=== PATIENT | female | born 1955 | race Caucasian/White ===

== ENCOUNTER 2017-06-22 10:59 | Outpatient (RCR) | payer MEDICARE, MEDICAID ==
[~2017-06-22 10:59] MED LIST: ALLERGY RELIEF PO; AMLO2.5T PO; ASPI-892 PO; CALC-196; CALC-760 PO; CHOL200014 PO; CLOP75TA PO; CLPD75T PO; CYAN100015 SL; CYAN100081 SL; CYCL10TA9 PO; CYCL5TAB11 PO; DIVA250T4 PO; EPIN0.3P2 IM; EPIN0.3P2 SC; EST45C; EZET10TA5 PO; FERR325C PO; FEXO180T PO; FISH OIL; FLUT16SP22 NS; HYDR-700; HYDR25CA3 PO; LORA-794 PO; LORA10TA2 PO; LORA1TAB PO; LRT10T PO; METF-478 PO; METO25TA2 PO; MULT-608; MULT1CAP27 PO; NF-ESOM40C PO; NF-XOP-HFA IH; NIAC125C3 PO; NIAC1CAP PO; NTR.4SL SL; OMEG-12 PO; OMEP-10 PO; OMEP20TA2 PO; OMG1KC PO; PARO20TA4 PO; PNT40TEC PO; RANI150T11 PO; RNT150T PO; SCR1T1 PO; SUCR1ORA PO; TRAM50TA2; TRAM50TA2 PO; VITA100T6 PO; VITA1CAP59; VITAMIN B 12; VITAMIN D; ZLP5T
== END 2017-07-20 13:10 | disposition home or self-care (01) ==
PROVIDERS: ATTEND Nurse Practitioner Family
DX: M54.42 Lumbago with sciatica, left side (principal); M54.41 Lumbago with sciatica, right side; M50.30 Other cervical disc degeneration, unspecified cervical region; G89.4 Chronic pain syndrome

== ENCOUNTER → 2017-11-08 | Outpatient (CLI) | payer MEDICARE, MEDICAID ==
[~2017-11-08] MED LIST changes: -CHOL200014 PO; +CHOL200085 PO; +REGADENOSON 0.4 MG/5 ML SYR (LEXISCAN) IV ONE
[2017-11-08] MEDS: CATHETER FLUSH 10 ML SYR IV PRN ×2 (11:47→13:02)
[2017-11-08 13:00] VITALS: BP 122/66
--- NOTE | 2017-11-10 10:34 | STRESS TEST ---
DATE OF SERVICE: 11/08/2017 RESTING AND POST REGADENOSON TECHNETIUM-99M TETROFOSMIN SPECT CT IMAGING ORDERING PHYSICIAN: Dr. Cabezas. PRIMARY PHYSICIAN: [facility]. CLINICAL DIAGNOSES: Coronary artery disease, hyperlipidemia, hypertension and shortness of breath. Baseline images were carried out after injection of 10.26 mCi of technetium-99M Tetrofosmin. This was followed by 0.4 mg Regadenoson and 31.5 mCi of technetium-99m Tetrofosmin for stress imaging. The electrocardiogram showed sinus rhythm with nonspecific ST abnormality in the inferolateral leads. This did not change significantly with the Regadenoson infusion. The patient tolerated the procedure well. Review of images at rest and following stress indicates a minimal transient perfusion defect in the lateral wall. Gated images show normal global left ventricular systolic function and normal regional wall motion. Left ventricular ejection fraction is calculated to be 73%. Left ventricular end diastolic volume is 48 mL. TID is absent (1.08). CONCLUSIONS: 1. This study is indicative of a minimal amount of the lateral ischemia. 2. Normal regional wall motion. 3. Normal global left ventricular systolic function with a calculated ejection fraction of 73%. 4. Normal left ventricular cavity size. Job ID: [id number] DocumentID: [id number] Dictated Date: 11/10/2017 10:06:29 Deflash And Wash Operator Date: 11/10/2017 10:34:00 Dictated By: BRIAN CABEZAS MD, MA, FACP, FACC,
== END ==
LOC: CARD 11:12
PROVIDERS: ATTEND Internal Medicine Cardiovascular Disease
DX: I77.89 Other specified disorders of arteries and arterioles (principal); I25.10 Atherosclerotic heart disease of native coronary artery without angina pectoris; N18.3 Chronic kidney disease, stage 3 (moderate); E78.5 Hyperlipidemia, unspecified; I12.9 Hypertensive chronic kidney disease with stage 1 through stage 4 chronic kidney disease, or unspecified chronic kidney disease; R06.02 Shortness of breath; Z95.1 Presence of aortocoronary bypass graft
CPT/HCPCS: 78452; 93017

== ENCOUNTER → 2017-11-28 | Outpatient (CLI) | payer MEDICARE, MEDICAID ==
[~2017-11-28] MED LIST changes: -REGADENOSON 0.4 MG/5 ML SYR (LEXISCAN) IV ONE
== END ==
LOC: CARD 11:59
PROVIDERS: ATTEND Internal Medicine Cardiovascular Disease
DX: I25.10 Atherosclerotic heart disease of native coronary artery without angina pectoris (principal); I12.9 Hypertensive chronic kidney disease with stage 1 through stage 4 chronic kidney disease, or unspecified chronic kidney disease; N18.3 Chronic kidney disease, stage 3 (moderate); E78.5 Hyperlipidemia, unspecified; R06.02 Shortness of breath; I08.3 Combined rheumatic disorders of mitral, aortic and tricuspid valves; Z95.1 Presence of aortocoronary bypass graft
CPT/HCPCS: 93306

== ENCOUNTER → 2018-02-03 | Outpatient (CLI) | payer MEDICARE, MEDICAID ==
--- NOTE | 2018-02-03 12:19 | Diagnostic Imaging Report ---
Indication: Screening. The current study was also evaluated with a Computer Aided Detection (CAD) system.\ Comparison made with prior examination of 01/04/2013 and 08/03/2011. 3D tomosynthesis was performed and reviewed. Findings: There are scattered fibroglandular densities bilaterally. There is no dominant mass, spiculated lesion or suspicious calcification identified. There are a few benign type calcifications. Impression: Category 2 benign ACR BI-RADS Category 2: Benign findings. Result letter will be mailed to the patient. Note: At least 10% of breast cancer is not imaged by mammography. Dictated by: Dictated on workstation # [id number]
== END ==
LOC: RAD 09:16
PROVIDERS: ATTEND Family Medicine
DX: Z12.31 Encounter for screening mammogram for malignant neoplasm of breast (principal)
CPT/HCPCS: 77067

== ENCOUNTER → 2018-10-30 | Outpatient (CLI) | payer MEDICARE, MEDICAID ==
[~2018-10-30] MED LIST changes: +CHOL200014 PO; -CHOL200085 PO
--- NOTE | 2018-10-30 16:44 | Diagnostic Imaging Report ---
CLINICAL INDICATION: Patient slipped and fell out of her chair twice in two weeks and has severe low back pain radiating to left hip. EXAM: CT scan of the lumbar spine performed without IV contrast with sagittal and coronal reformatted images. COMPARISON: None. FINDINGS: There is no acute lumbar spine fracture or dislocation. There are minimal spurs involving the lumbar spine. There is no significant paraspinal soft tissue abnormality. There is atelectasis or scarring in both lung bases. Calcified granulomas in both lung bases are seen. L1-L2: There is no significant central spinal canal or neural foramen narrowing. L2-L3: There is mild diffuse disc bulge. There is tsps-ux-ncdfkenm bilateral neural foramen narrowing. There is no significant central canal narrowing. L3-L4: There is a mild diffuse disc bulge which contributes to ohfj-tr-tjupbqjw bilateral neural foramen narrowing. There is no significant central canal narrowing. L4-L5: There is mild diffuse disc bulge and mild bilateral facet arthropathy. There is qugk-bj-ycpxxzsq bilateral neural foramen narrowing. There is no significant central canal narrowing. L5-S1: There is appearance of a small central posterior disc protrusion/herniation with mild central canal narrowing with mild left neural foramen narrowing and no significant right neural foramen narrowing. IMPRESSION: 1: There is no acute fracture or dislocation. 2: There is ewjc-rx-fbfxupzy lumbar spine degenerative disease, as described above. Dictated by: Dictated on workstation # [id number]
--- NOTE | 2018-10-30 16:48 | Diagnostic Imaging Report ---
PROCEDURE: CT left lower extremity without contrast. TECHNIQUE: Multiple contiguous axial images were obtained through the left lower extremity without the use of intravenous contrast. Sagittal and coronal reformations were then performed. Auto Exposure Controls were utilized during the CT exam to meet ALARA standards for radiation dose reduction. INDICATION: Fall with left hip pain. FINDINGS: CT imaging of the left hip is performed with sagittal and coronal reformatted images produced. There is no evidence of acute fracture. There is no significant hip joint fluid. No definite juxta-articular hemorrhage is identified. There is no evidence of free fluid seen within the visualized portions of the pelvis. There is herniation of fat through the left inguinal canal. IMPRESSION: 1. No evidence of acute left hip abnormality. In particular, there is no evidence of fracture or dislocation. 2. There is herniation of fat through the left inguinal canal without bowel hernia appreciated. Dictated by: Dictated on workstation # [id number]
== END ==
LOC: RAD 15:58
PROVIDERS: ATTEND Nurse Practitioner Family
DX: M48.07 Spinal stenosis, lumbosacral region (principal); J84.10 Pulmonary fibrosis, unspecified; M47.816 Spondylosis without myelopathy or radiculopathy, lumbar region; M51.16 Intervertebral disc disorders with radiculopathy, lumbar region; K40.90 Unilateral inguinal hernia, without obstruction or gangrene, not specified as recurrent
CPT/HCPCS: 72131; 73700

== ENCOUNTER 2018-11-09 12:49 | Emergency (ER) | payer MEDICARE, MEDICAID ==
[~2018-11-09] VITALS: Ht 152.4 cm; Wt 90.0 kg
[2018-11-09] MEDS ORDERED: KETOROLAC 30 MG/ML VIAL IVP ONE (14:00)
[2018-11-09] MEDS ORDERED: fentaNYL INJECTION 100 MCG/2 ML AMP ONE (14:06)
[2018-11-09] MEDS ORDERED: fentaNYL INJECTION 100 MCG/2 ML AMP IVP PRN (14:15)
[2018-11-09 14:18] LABS: BASOPHILS % (AUTO) 1 % (0-10); EOSINOPHILS # (AUTO) 0.2 10^3/uL (0.0-0.3); EOSINOPHILS % (AUTO) 4 % (0-10); HEMATOCRIT 39 % (35-52); HEMOGLOBIN 13.2 G/DL (11.5-16.0); LYMPHOCYTES # (AUTO) 2.3 X 10^3 (1.0-4.0); LYMPHOCYTES % (AUTO) 37 % (12-44); MEAN CORPUSCULAR HEMOGLOBIN 32 PG (25-34); MEAN CORPUSCULAR HGB CONC 34 G/DL (32-36); MEAN CORPUSCULAR VOLUME 94 FL (80-99); MEAN PLATELET VOLUME 9.2 FL (7.4-10.4); MONOCYTES # (AUTO) 0.8 X 10^3 (0.0-1.0); MONOCYTES % (AUTO) 13 % (0-12); NEUTROPHILS # (AUTO) 2.8 X 10^3 (1.8-7.8); NEUTROPHILS % (AUTO) 46 % (42-75); PLATELET COUNT 399 10^3/uL (130-400); RED CELL DISTRIBUTION WIDTH 13.4 % (10.0-14.5); WHITE BLOOD COUNT 6.1 10^3/uL (4.3-11.0)
--- NOTE | 2018-11-09 14:18 | ED Back Pain ---
General Chief Complaint: Back Problems Stated Complaint: BACK INJ Nursing Triage Note: Brought to triage by Wheelchair. Stayes that she was sent over from [facility] for further evaluation of back pain. States that she feel out of her rocking chair while trying to stand on 10/23 and hit her back on ottoman. States going to [facility] on 10/[address] To [facility] today for no improvement of pain and duskiness to toe nail beds. States that she is numb and tingling from waist down. Is able to control bladder and bowel but does leak urine if bladder is full but that is not new. Able to ambulate at home with use of railings for support but states she stays flat most of the time Nursing Sepsis Screen: No Definite Risk Source of Information: Patient Exam Limitations: No Limitations History of Present Illness Date Seen by Provider: Nov 09, 2018 Time Seen by Provider: 14:17 Initial Comments To ER with reports of midline low back pain. She fell on 10/23/18. She had lumbar spine CT done and right hip CT done at that time which failed to reveal fracture or dislocation. She comes in today with progressive pain, questionable discoloration of her toes. She reports some numbness from the waist down, she does report urinary incontinence which is unusual for her. Location: Lumbar Spine Timing/Duration: Other (2 weeks getting worse) Severity: Moderate Method of Injury: Unknown Associated Symptoms: No fever; lower back pain, loss of bladder control Allergies and Home Medications Allergies Coded Allergies: cinnamon (Unverified Allergy, Intermediate, HIVES, 05/04/12) mirtazapine (Verified Allergy, Intermediate, RASH, 08/14/15) Milk Containing Products (Unverified Allergy, Mild, NAUSEA, 05/04/12) amitriptyline (Unverified Allergy, Mild, HIVES, 05/04/12) doxycycline (Verified Allergy, Mild, RASH, 08/09/12) Beef Containing Products (Unverified Allergy, Unknown, hives, 08/29/09) Pork/Porcine Containing Products (Unverified Allergy, Unknown, hives, 08/29/09) albuterol (Verified Allergy, Unknown, 01/03/09) aspirin (Verified Allergy, Unknown, 08/14/15) codeine (Verified Allergy, Unknown, 01/03/09) cyclobenzaprine HCl (Verified Allergy, Unknown, 08/14/15) lisinopril (Verified Allergy, Unknown, 01/03/09) milk (Unverified Allergy, Unknown, hives, 08/29/09) penicillin G (Verified Allergy, Unknown, 01/03/09) pravastatin sodium (Verified Allergy, Unknown, 08/14/15) rabeprazole sodium (Verified Allergy, Unknown, 08/14/15) rofecoxib (Verified Allergy, Unknown, 01/03/09) venlafaxine (Verified Allergy, Unknown, 01/03/09) wheat (Unverified Adverse Reaction, Mild, 05/04/12) CONGESTION Uncoded Allergies: BARLEY (Allergy, Mild, HIVES, 05/04/12) Home Medications Calcium Carb/Vit D3/Minerals 1 Each Tablet, 1 TAB PO DAILY, (Reported) Cholecalciferol (Vitamin D3) 2,000 Unit Tablet, 2,000 UNIT PO DAILY, (Reported) Clopidogrel 75 Mg Tablet, 75 MG PO HS, (Reported) Cyanocobalamin (Vitamin B-12) 1,000 Mcg/1 Ml Drops, 1,000 MCG SL DAILY, (Reported) Cyclobenzaprine Hcl 10 Mg Tablet, 10 MG PO TID PRN for MUSCLE SPASMS, (Reported) Divalproex Sodium 250 Mg Tablet.dr, 250 MG PO UD PRN for MIGRAINE, (Reported) TAKE ONE IN THE MORNING FOR MIGRAINE AND IF SYMPTOMS PERSIST TAKE TWO TABLETS AT BEDTIME Epinephrine 0.3 Mg/0.3/Syringe Pen.injctr, 0.3 MG IM UD PRN for ALLERGIC REACTION, (Reported) Fluticasone Propionate 16 Gm [place].susp, 1 SPRAYS NS HS, (Reported) Levalbuterol Tartrate 15 Gm Hfa.aer.ad, 1 PUFF IH Q4H PRN for WHEEZING, (Reported) Loratadine 10 Mg Tablet, 10 MG PO HS, (Reported) Lorazepam 1 Mg Tablet, 1 MG PO TID PRN for ANXIETY, (Reported) Metoprolol Tartrate 25 Mg Tablet, 25 MG PO BID, (Reported) Multivitamins 1 Each Capsule, 1 CAP PO DAILY, (Reported) Niacin (Inositol Niacinate) 500 Mg Capsule, 500 MG PO BID, (Reported) [place] 3 Polyunsat Fatty Acids 1,000 Mg Cap, 1,000 MG PO BID, (Reported) Paroxetine Hcl 20 Mg Tablet, 20 MG PO HS, (Reported) Ranitidine HCl 150 Mg Tablet, 150 MG PO BID, (Reported) Patient Home Medication List Home Medication List Reviewed: Yes Review of Systems Constitutional: see HPI EENTM: see HPI Respiratory: no symptoms reported Cardiovascular: no symptoms reported Genitourinary: no symptoms reported Musculoskeletal: see HPI, back pain Skin: no symptoms reported Psychiatric/Neurological: No Symptoms Reported Past Ammapsl-Byudfn-Sqamfg Hx Patient Social History Alcohol Use: Denies Use Recreational Drug Use: No Smoking Status: Never a Smoker Recent Foreign Travel: No Contact w/Someone Who Travel: No Recent Infectious Disease Expo: No Recent Hopitalizations: Yes Immunizations Up To Date Tetanus Booster (TDap): Unknown Seasonal Allergies Seasonal Allergies: No Past Medical History Surgeries: Yes (NECK BIOPSY) Abdominal, Appendectomy, Cardiac, Hysterectomy, Tonsillectomy Respiratory: Yes Asthma Currently Using CPAP: No Currently Using BIPAP: No Cardiac: Yes (CABG, stents) Coronary Artery Disease, High Cholesterol, Hypertension Neurological: No 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 0.0oz. 90.180256ot; 38.00 BMI Method:Stated General Appearance: No Apparent Distress, WD/WN Neck: Full Range of Motion, Normal Inspection Respiratory: No Accessory Muscle Use, No Respiratory Distress Gastrointestinal: Normal Bowel Sounds, Non Tender, Soft Extremity: Normal Capillary Refill, Normal Inspection Neurologic/Psychiatric: Alert, Oriented x3 Skin: Normal Color, Warm/Dry Plantar flexion and dorsiflexion 3 out of 5 each foot. Capillary refill of the toes is sluggish at 3 seconds, there is a strong +2 in strength symmetric dorsalis pedis pulse. Progress/Results/Core Measures Results/Orders Lab Results Laboratory Tests Test 11/09/18 14:12 11/09/18 16:40 Range/Units White Blood Count 6.1 4.3-11.0 10^3/uL Red Blood Count 4.18 L 4.35-5.85 10^6/uL Hemoglobin 13.2 11.5-16.0 G/DL Hematocrit 39 35-52 % Mean Corpuscular Volume 94 80-99 FL Mean Corpuscular Hemoglobin 32 25-34 PG Mean Corpuscular Hemoglobin Concent 34 32-36 G/DL Red Cell Distribution Width 13.4 10.0-14.5 % Platelet Count 399 130-400 10^3/uL Mean Platelet Volume 9.2 7.4-10.4 FL Neutrophils (%) (Auto) 46 42-75 % Lymphocytes (%) (Auto) 37 12-44 % Monocytes (%) (Auto) 13 H 0-12 % Eosinophils (%) (Auto) 4 0-10 % Basophils (%) (Auto) 1 0-10 % Neutrophils # (Auto) 2.8 1.8-7.8 X 10^3 Lymphocytes # (Auto) 2.3 1.0-4.0 X 10^3 Monocytes # (Auto) 0.8 0.0-1.0 X 10^3 Eosinophils # (Auto) 0.2 0.0-0.3 10^3/uL Basophils # (Auto) 0.0 0.0-0.1 10^3/uL Sodium Level 141 135-145 MMOL/L Potassium Level 3.9 3.6-5.0 MMOL/L Chloride Level 105 98-107 MMOL/L Carbon Dioxide Level 25 21-32 MMOL/L Anion Gap 11 5-14 MMOL/L Blood Urea Nitrogen 15 7-18 MG/DL Creatinine 1.19 0.60-1.30 MG/DL Estimat Glomerular Filtration Rate 46 BUN/Creatinine Ratio 13 Glucose Level 92 70-105 MG/DL Calcium Level 10.0 8.5-10.1 MG/DL Corrected Calcium 8.5-10.1 MG/DL Total Bilirubin 0.6 0.1-1.0 MG/DL Aspartate Amino Transf (AST/SGOT) 24 5-34 U/L Alanine Aminotransferase (ALT/SGPT) 16 0-55 U/L Alkaline Phosphatase 49 40-136 U/L Total Protein 7.7 6.4-8.2 GM/DL Albumin 4.6 H 3.2-4.5 GM/DL Urine Color YELLOW Urine Clarity CLEAR Urine pH 6 5-9 Urine Specific [place] 1.015 L 1.016-1.022 Urine Protein NEGATIVE NEGATIVE Urine Glucose (UA) NEGATIVE NEGATIVE Urine Ketones NEGATIVE NEGATIVE Urine Nitrite NEGATIVE NEGATIVE Urine Bilirubin NEGATIVE NEGATIVE Urine Urobilinogen NORMAL NORMAL MG/DL Urine Leukocyte Esterase 2+ H NEGATIVE Urine RBC (Auto) NEGATIVE NEGATIVE Urine RBC NONE /HPF Urine WBC RARE /HPF Urine Crystals NONE /LPF Urine Bacteria FEW H /HPF Urine Casts NONE /LPF Urine Mucus NEGATIVE /LPF Urine Culture Indicated NO My Orders Orders - MONI WEEKS APRN Mri Lumbar Spine W/O Contrast (11/09/18 14:00) Cbc With Automated Diff (11/09/18 14:00) Comprehensive Metabolic Panel (11/09/18 14:00) Ua Culture If Indicated (11/09/18 14:00) Ed Iv/Invasive Line Start (11/09/18 14:00) Ketorolac Injection (Toradol Injection) (11/09/18 14:00) Fentanyl Injection (Sublimaze Injection (11/09/18 14:15) Fentanyl Injection (Sublimaze Injection (11/09/18 14:06) Oxycodone/Apap 5/325mg Tablet (Percocet (11/09/18 15:15) Fentanyl Injection (Sublimaze Injection (11/09/18 16:00) Medications Given in ED Current Medications Medications Dose Ordered Sig/Louann Route Start Time Stop Time Status Last Admin Dose Admin Fentanyl Citrate 25 mcg ONCE PRN IVP 11/09/18 14:15 11/09/18 14:17 25 MCG Fentanyl Citrate 50 mcg ONCE ONCE IVP 11/09/18 16:00 11/09/18 16:01 DC 11/09/18 16:05 50 MCG Oxycodone/ Acetaminophen 1 tab ONCE ONCE PO 11/09/18 15:15 11/09/18 15:16 DC 11/09/18 15:47 1 TAB Vital Signs/I&O 11/09/18 13:25 Temp 35.8 Pulse 71 Resp 16 B/P (MAP) 152/67 (95) Pulse Ox 96 Blood Pressure Mean: 95 Departure Impression Primary Impression: Lumbar radiculopathy Disposition: 01 HOME, SELF-CARE Condition: Stable Departure-Patient Inst. Decision time for Depature: 17:01 Referrals: LILIYA STAPLETON MD (PCP/Family) Primary Care Physician Patient Instructions: Radiculopathy (DC) Add. Discharge Instructions: 1. Return to ER for any concerns 2. Medication as directed. This may be constipating so if you don't already been U should take a stool softener such as Colace 3. Follow-up with your doctor next week 4. All discharge instructions reviewed with patient and/or family. Voiced understanding. Scripts Oxycodone HCl/Acetaminophen (Percocet 5-325 mg Tablet) 1 Each Tablet 1 TAB PO Q4H PRN for PAIN-SEVERE MDD 6 TABS for 7 Days, #20 TAB Prov: MONI WEEKS APRN 11/09/18 MONI WEEKS APRN Nov 09, 2018 14:18
[2018-11-09 14:49] LABS: ALANINE AMINOTRANSFERASE 16 U/L (0-55); ALBUMIN 4.6 GM/DL (3.2-4.5); ALKALINE PHOSPHATASE 49 U/L (40-136); BILIRUBIN,TOTAL 0.6 MG/DL (0.1-1.0); BUN/CREATININE RATIO 13; CARBON DIOXIDE 25 MMOL/L (21-32); CHLORIDE 105 MMOL/L (98-107); CREATININE SERUM 1.19 MG/DL (0.60-1.30); GFR ESTIMATED 46; GLUCOSE 92 MG/DL (70-105); POTASSIUM 3.9 MMOL/L (3.6-5.0); SODIUM 141 MMOL/L (135-145); TOTAL PROTEIN 7.7 GM/DL (6.4-8.2)
--- NOTE | 2018-11-09 15:05 | Diagnostic Imaging Report ---
PROCEDURE: MRI lumbar spine. TECHNIQUE: Multiplanar, multisequence MRI of the lumbar spine was performed without contrast. INDICATION: Low back pain and loss of bladder control. COMPARISON: No prior studies are available for comparison. FINDINGS: Curvature and alignment of the lumbar spine is normal. Vertebral heights are well-maintained. No geographic marrow lesion is seen. Disc spaces are fairly well maintained. Minimal desiccation is noted. The conus is unremarkable at the L1 level. T12-L1: Central canal and neural foramina are widely patent. L1-L2: Central canal and neural foramina are widely patent. L2-L3: There is mild ligamentous thickening and facet changes. Central canal is patent. Neural foramina appear patent. L3-L4: There is a broad-based disc/osteophyte complex but no significant central canal narrowing is seen. There is some ligamentous thickening. Mild bilateral neural foraminal narrowing is present. L4-L5: Broad-based disc/osteophyte complex flattens the ventral thecal sac. Central canal remains patent. Mild bilateral neural foraminal narrowing is seen. L5-S1: Wide-based midline disc bulge indents the ventral thecal sac. There is a mild central canal narrowing. No significant neural foraminal narrowing is seen. Paraspinous tissues are unremarkable. IMPRESSION: Mild generalized lumbar spondylosis with mild central canal and neural foraminal narrowing described level by level above. No acute compression fracture is seen. Dictated by: Dictated on workstation # [id number]
[2018-11-09] MEDS ORDERED: oxyCODONE/APAP 5/325MG (PERCOCET 5) TABLET PO ONE (15:15)
[2018-11-09] MEDS ORDERED: fentaNYL INJECTION 100 MCG/2 ML AMP IVP ONE (16:00)
[2018-11-09 16:50] LABS: BILIRUBIN,URINE NEGATIVE (NEGATIVE); CLARITY,URINE CLEAR; COLOR,URINE YELLOW; GLUCOSE, URINE (UA) NEGATIVE (NEGATIVE); KETONES,URINE NEGATIVE (NEGATIVE); LEUKOCYTE ESTERASE ,URINE 2+ (NEGATIVE); NITRITE,URINE NEGATIVE (NEGATIVE); PH,URINE 6 (5-9); PROTEIN,URINE NEGATIVE (NEGATIVE); UROBILINOGEN,URINE NORMAL (NORMAL)
[2018-11-09 16:56] LABS: WBC,URINE RARE /HPF
[2018-11-09 16:57] LABS: BACTERIA,URINE FEW /HPF
[2018-11-09] MEDS ORDERED: OXYC1TAB87 PO (17:02)
[2018-11-09 17:12] VITALS: BP 144/68
== END 2018-11-09 17:12 | disposition home or self-care (01) ==
LOC: EDUNIT# 12:49 → ER 12:50
DX: M54.16 Radiculopathy, lumbar region (principal); I10 Essential (primary) hypertension; E11.9 Type 2 diabetes mellitus without complications; I25.10 Atherosclerotic heart disease of native coronary artery without angina pectoris; J45.909 Unspecified asthma, uncomplicated; E78.00 Pure hypercholesterolemia, unspecified; K21.9 Gastro-esophageal reflux disease without esophagitis; F41.9 Anxiety disorder, unspecified; M79.7 Fibromyalgia; Z85.43 Personal history of malignant neoplasm of ovary; Z85.42 Personal history of malignant neoplasm of other parts of uterus; Z87.440 Personal history of urinary (tract) infections; Z95.1 Presence of aortocoronary bypass graft; Z95.5 Presence of coronary angioplasty implant and graft; Z88.1 Allergy status to other antibiotic agents; Z88.6 Allergy status to analgesic agent; Z88.8 Allergy status to other drugs, medicaments and biological substances; Z88.5 Allergy status to narcotic agent; Z88.0 Allergy status to penicillin; Z79.51 Long term (current) use of inhaled steroids; Z79.02 Long term (current) use of antithrombotics/antiplatelets; Z90.710 Acquired absence of both cervix and uterus; Z90.49 Acquired absence of other specified parts of digestive tract; Z90.89 Acquired absence of other organs; W07.XXXA Fall from chair, initial encounter
CPT/HCPCS: 36415; 72148; 80053; 81000; 85025

== ENCOUNTER 2020-08-06 13:04 | Emergency (ER) | payer MEDICARE, MEDICAID ==
[~2020-08-06] VITALS: Ht 149 cm; Wt 90.9 kg
[~2020-08-06 13:04] MED LIST changes: +EZET10TA17 PO; +OXYC1TAB87 PO
--- NOTE | 2020-08-06 13:09 | ED Abdominal Pain ---
General Stated Complaint: ABD PAIN Source of Information: Patient Exam Limitations: No Limitations History of Present Illness Date Seen by Provider: Aug 06, 2020 Time Seen by Provider: 13:09 Initial Comments This is a 64-year-old female who presents to the ER with complaints of right upper quadrant abdominal pain that radiates under her right ribs x2 days. States pain is intermittent, rates 8/10, sharp and stabbing in nature. Has not taken anything for pain prior to arrival. States she takes tizanidine daily for "neurological problems". No fever, chills, cough, shortness of breath, vomiting, diarrhea, or dysuria. Allergies and Home Medications Allergies Coded Allergies: cinnamon (Unverified Allergy, Intermediate, HIVES, 05/04/12) mirtazapine (Verified Allergy, Intermediate, RASH, 08/14/15) Milk Containing Products (Unverified Allergy, Mild, NAUSEA, 05/04/12) amitriptyline (Unverified Allergy, Mild, HIVES, 05/04/12) doxycycline (Verified Allergy, Mild, RASH, 08/09/12) Beef Containing Products (Unverified Allergy, Unknown, hives, 08/29/09) Pork/Porcine Containing Products (Unverified Allergy, Unknown, hives, 08/29/09) albuterol (Verified Allergy, Unknown, 01/03/09) aspirin (Verified Allergy, Unknown, 08/14/15) codeine (Verified Allergy, Unknown, 01/03/09) cyclobenzaprine HCl (Verified Allergy, Unknown, 08/14/15) lisinopril (Verified Allergy, Unknown, 01/03/09) milk (Unverified Allergy, Unknown, hives, 08/29/09) penicillin G (Verified Allergy, Unknown, 01/03/09) pravastatin sodium (Verified Allergy, Unknown, 08/14/15) rabeprazole sodium (Verified Allergy, Unknown, 08/14/15) rofecoxib (Verified Allergy, Unknown, 01/03/09) venlafaxine (Verified Allergy, Unknown, 01/03/09) wheat (Unverified Adverse Reaction, Mild, 05/04/12) CONGESTION Uncoded Allergies: BARLEY (Allergy, Mild, HIVES, 05/04/12) Home Medications Calcium Carb/Vit D3/Minerals 1 Each Tablet, 1 TAB PO DAILY, (Reported) Cholecalciferol (Vitamin D3) 2,000 Unit Tablet, 2,000 UNIT PO DAILY, (Reported) Ciprofloxacin HCl 500 Mg Tablet, 500 MG PO BID Prescribed by: NONA PAYAN on 08/06/20 150 Clopidogrel 75 Mg Tablet, 75 MG PO HS, (Reported) Cyanocobalamin (Vitamin B-12) 1,000 Mcg/1 Ml Drops, 1,000 MCG SL DAILY, (Reported) Cyclobenzaprine Hcl 10 Mg Tablet, 10 MG PO TID PRN for MUSCLE SPASMS, (Reported) Divalproex Sodium 250 Mg Tablet.dr, 250 MG PO UD PRN for MIGRAINE, (Reported) TAKE ONE IN THE MORNING FOR MIGRAINE AND IF SYMPTOMS PERSIST TAKE TWO TABLETS AT BEDTIME Epinephrine 0.3 Mg/0.3/Syringe Pen.injctr, 0.3 MG IM UD PRN for ALLERGIC REACTION, (Reported) Fluticasone Propionate 16 Gm [place].susp, 1 SPRAYS NS HS, (Reported) Hydrocodone/Acetaminophen 1 Each Tablet, 1 TAB PO Q6H PRN for PAIN-MODERATE (5- 7) Prescribed by: NONA PAYAN on 08/06/20 150 Levalbuterol Tartrate 15 Gm Hfa.aer.ad, 1 PUFF IH Q4H PRN for WHEEZING, (Reported) Loratadine 10 Mg Tablet, 10 MG PO HS, (Reported) Lorazepam 1 Mg Tablet, 1 MG PO TID PRN for ANXIETY, (Reported) Metoprolol Tartrate 25 Mg Tablet, 25 MG PO BID, (Reported) Multivitamins 1 Each Capsule, 1 CAP PO DAILY, (Reported) Niacin (Inositol Niacinate) 500 Mg Capsule, 500 MG PO BID, (Reported) [place] 3 Polyunsat Fatty Acids 1,000 Mg Cap, 1,000 MG PO BID, (Reported) Oxycodone HCl/Acetaminophen 1 Each Tablet, 1 TAB PO Q4H PRN for PAIN-SEVERE Prescribed by: MONI WEEKS on 11/09/18 1702 Paroxetine Hcl 20 Mg Tablet, 20 MG PO HS, (Reported) Ranitidine HCl 150 Mg Tablet, 150 MG PO BID, (Reported) Patient Home Medication List Home Medication List Reviewed: Yes Review of Systems Review of Systems Constitutional: no symptoms reported EENTM: No Symptoms Reported Respiratory: No Symptoms Reported Cardiovascular: No Symptoms Reported Gastrointestinal: See HPI Genitourinary: No Symptoms Reported Musculoskeletal: no symptoms reported Skin: no symptoms reported Psychiatric/Neurological: No Symptoms Reported Endocrine: No Symptoms Reported Hematologic/Lymphatic: No Symptoms Reported Past Pvaegqc-Bxmyhw-Vnsjev Hx Patient Social History Recent Hopitalizations: Yes Immunizations Up To Date Tetanus Booster (TDap): Unknown Seasonal Allergies Seasonal Allergies: No Past Medical History Surgeries: Yes (NECK BIOPSY) Abdominal, Appendectomy, Cardiac, Hysterectomy, Tonsillectomy Respiratory: Yes Asthma Currently Using CPAP: No Currently Using BIPAP: No Cardiac: Yes (CABG, stents) Coronary Artery Disease, High Cholesterol, Hypertension Neurological: No Reproductive Disorders: Yes MATERIAL MAN History: Hysterectomy, Menopausal UTI-Chronic Gastrointestinal: Yes Gastroesophageal Reflux, Gastrointestinal Bleed Musculoskeletal: Yes (ARTHRITIS, FIBROMYALGIA) Arthritis, Fibromyalgia, Back Injury Endocrine: No Diabetes, Non-Insulin dep Cancer: Yes Ovarian, Uterine Psychosocial: Yes Anxiety Integumentary: No Blood Disorders: No Adverse Reaction/Blood Tranf: No Physical Exam Vital Signs Vital Signs - First Documented 08/06/20 13:08 Temp 36.4 Pulse 84 Resp 18 B/P (MAP) 202/108 (139) Pulse Ox 84 O2 Delivery Room Air Capillary Refill : Height/Weight/BMI Height: 5'0.00" Weight: 200lbs. 0.0oz. 90.774858sp; 38.00 BMI Method:Stated General Appearance: WD/WN, no apparent distress HEENT: PERRL/EOMI, normal ENT inspection, TMs normal, pharynx normal Neck: full range of motion, normal inspection Respiratory: lungs clear, normal breath sounds, no respiratory distress Cardiovascular: regular rate, rhythm, no gallop Gastrointestinal: normal bowel sounds, soft; No rebound, No hepatomegaly, No spleenomegaly; other (RUQ tenderness to palpation. ) Rectal: deferred Extremities: normal range of motion, non-tender, normal inspection Neurologic/Psychiatric: no motor/sensory deficits, alert, normal mood/affect, oriented x 3 Skin: normal color, warm/dry Progress/Results/Core Measures Results/Orders Lab Results Laboratory Tests Test 08/06/20 13:24 08/06/20 15:16 Range/Units White Blood Count 7.7 4.3-11.0 10^3/uL Red Blood Count 4.45 3.80-5.11 10^6/uL Hemoglobin 14.1 11.5-16.0 g/dL Hematocrit 41 35-52 % Mean Corpuscular Volume 93 80-99 fL Mean Corpuscular Hemoglobin 32 25-34 pg Mean Corpuscular Hemoglobin Concent 34 32-36 g/dL Red Cell Distribution Width 12.3 10.0-14.5 % Platelet Count 346 130-400 10^3/uL Mean Platelet Volume 9.3 9.0-12.2 fL Immature Granulocyte % (Auto) 0 % Neutrophils (%) (Auto) 60 42-75 % Lymphocytes (%) (Auto) 29 12-44 % Monocytes (%) (Auto) 9 0-12 % Eosinophils (%) (Auto) 2 0-10 % Basophils (%) (Auto) 1 0-10 % Neutrophils # (Auto) 4.6 1.8-7.8 10^3/uL Lymphocytes # (Auto) 2.2 1.0-4.0 10^3/uL Monocytes # (Auto) 0.7 0.0-1.0 10^3/uL Eosinophils # (Auto) 0.2 0.0-0.3 10^3/uL Basophils # (Auto) 0.1 0.0-0.1 10^3/uL Immature Granulocyte # (Auto) 0.0 0.0-0.1 10^3/uL Sodium Level 141 135-145 MMOL/L Potassium Level 4.0 3.6-5.0 MMOL/L Chloride Level 106 98-107 MMOL/L Carbon Dioxide Level 23 21-32 MMOL/L Anion Gap 12 5-14 MMOL/L Blood Urea Nitrogen 9 7-18 MG/DL Creatinine 1.11 0.60-1.30 MG/DL Estimat Glomerular Filtration Rate 49 BUN/Creatinine Ratio 8 Glucose Level 175 H 70-105 MG/DL Calcium Level 9.8 8.5-10.1 MG/DL Corrected Calcium 9.6 8.5-10.1 MG/DL Total Bilirubin 0.6 0.1-1.0 MG/DL Aspartate Amino Transf (AST/SGOT) 34 5-34 U/L Alanine Aminotransferase (ALT/SGPT) 30 0-55 U/L Alkaline Phosphatase 86 40-136 U/L Troponin I < 0.028 <0.028 NG/ML C-Reactive Protein High Sensitivity 0.99 H 0.00-0.50 MG/DL Total Protein 7.6 6.4-8.2 GM/DL Albumin 4.3 3.2-4.5 GM/DL Urine Color YELLOW Urine Clarity CLEAR Urine pH 5.5 5-9 Urine Specific [place] 1.010 L 1.016-1.022 Urine Protein NEGATIVE NEGATIVE Urine Glucose (UA) NEGATIVE NEGATIVE Urine Ketones NEGATIVE NEGATIVE Urine Nitrite NEGATIVE NEGATIVE Urine Bilirubin NEGATIVE NEGATIVE Urine Urobilinogen 0.2 < = 1.0 MG/DL Urine Leukocyte Esterase NEGATIVE NEGATIVE Urine RBC (Auto) NEGATIVE NEGATIVE Urine RBC NONE /HPF Urine WBC RARE /HPF Urine Squamous Epithelial Cells 2-5 /HPF Urine Renal Epithelial Cells RARE /HPF Urine Crystals NONE /LPF Urine Bacteria NEGATIVE /HPF Urine Casts NONE /LPF Urine Mucus NEGATIVE /LPF Urine Culture Indicated NO My Orders Orders - NONA PAYAN USABILITY ENGINEER Ua Culture If Indicated (08/06/20 13:08) Cbc With Automated Diff (08/06/20 13:26) Comprehensive Metabolic Panel (08/06/20 13:26) Chest 1 View, Ap/Pa Only (08/06/20 13:26) Ct Abdomen/Pelvis W (08/06/20 13:26) Hs C Reactive Protein (08/06/20 13:26) Troponin I (08/06/20 13:26) Fentanyl Inj (Sublimaze Injection) (08/06/20 13:45) Ondansetron Injection (Zofran Injectio (08/06/20 13:45) Ekg Tracing (08/06/20 13:37) Iohexol Injection (Omnipaque 350 Mg/Ml 1 (08/06/20 14:15) Received Contrast (Hold Metformin- Contr (08/06/20 14:15) Sodium Chloride Flush (Catheter Flush Sy (08/06/20 14:15) Ns (Ivpb) (Sodium Chloride 0.9% Ivpb Bag (08/06/20 14:15) Hydrocodone/Apap 5/325 Tablet (Lortab 5 (08/06/20 15:00) Ciprofloxacin Tablet (Cipro Tablet) (08/06/20 15:00) Medications Given in ED Vital Signs/I&O 08/06/20 08/06/20 13:08 15:25 Temp 36.4 Pulse 84 77 Resp 18 18 B/P (MAP) 202/108 (139) 159/74 Pulse Ox 84 98 O2 Delivery Room Air Progress Progress Note : Progress Note Patient examined and in no acute distress. Orders placed for basic labs, CRP, troponin, EKG, CXR, and CT abd/pelvis. Fentanyl 50mcg IVP and Zofran 4mg IVP given for pain and nausea. Labs reviewed. Elevated CRP, otherwise unremarkable. EKG neg for ST segment changes. CXR shows no acute pathology. CT abd pelvis indicates enteritis. No bowel ischemia. Reviewed discharge POC and she is agreeable with plan. Initial ECG Impression Date: Aug 06, 2020 Initial ECG Impression Time: 13:59 Initial ECG Rate: 72 Initial ECG Rhythm: Normal Sinus Initial ECG Intervals: Normal Initial ECG Impression: Nonspecific Changes Initial ECG Comparisson: Unchanged Diagnostic Imaging Diagonstic Imaging: Xray Plain Films/CT/US/NM/MRI: chest Comments [facility] [employer] [place], [place] NAME: DAISY ARIAS [facility] REC#: [id number] PT STATUS: DEP ER : 1955 PHYSICIAN: NONA PAYAN USABILITY ENGINEER ADMIT DATE: 08/06/20/ER Signed Date of Exam:08/06/20 CHEST 1 VIEW, AP/PA ONLY Indication: Cough Frontal chest obtained at 201 hours p.m. and compared to 05/04/2012. There is poststernotomy change. The heart is borderline in size. There is mild central vascular prominence without ameena edema. There is no consolidation or pneumothorax or pleural fluid. There is some linear scarring or atelectasis in the right midlung IMPRESSION: Central vascular congestion without ameena edema. Mild linear scarring or atelectasis in right midlung. No consolidation or pleural fluid. Dictated by: Dictated on workstation # [id number] Dict: 08/06/20 1424 Trans: 08/06/201941 [facility] [id number] Interpreted by: OPAL CAUSEY MD Electronically signed by: OPAL CAUSEY MD 08/06/201941 Reviewed: Reviewed by Mn Diagonstic Imaging: CT Plain Films/CT/US/NM/MRI: abdomen, pelvis Comments [facility] [employer] [place] NAME: DAISY ARIAS [facility] REC#: [id number] PT STATUS: REG ER : 1955 PHYSICIAN: NONA PAYAN APRN ADMIT DATE: 08/06/20/ER Signed Date of Exam:08/06/20 CT ABDOMEN/PELVIS W EXAMINATION: CT abdomen and pelvis with intravenous contrast. TECHNIQUE: Multiple contiguous axial images were obtained through the abdomen and pelvis after the uneventful administration of intravenous contrast. All CT scans use one or more of the following dose optimizing techniques: automated exposure control, MA and/or KvP adjustment based on patient size and exam type or iterative reconstruction. HISTORY: Right upper quadrant abdominal pain. COMPARISON: None available. FINDINGS: The heart is unremarkable. Calcified granulomas are seen in the lung bases bilaterally. Minimal atelectasis is seen in the lung bases. There is hepatic steatosis. No focal hepatic lesions are seen. The portal vein is patent. The gallbladder is surgically absent. No intra or extrahepatic biliary dilation is seen. The liver, spleen, pancreas, adrenal glands, and kidneys have a normal appearance. There is no pathologically enlarged mesenteric or retroperitoneal adenopathy. Bowel wall thickening and hyperemia is seen involving the proximal small bowel. No evidence of acute vascular occlusion or internal hernia. There is a small amount of mesenteric inflammatory changes in the midabdomen. There is no free fluid or free air. No acute osseous abnormalities. There is calcified aortic and iliac atherosclerotic plaque without evidence of aneurysm. Ureters and bladder are grossly normal. There is no free air, loculated collection, or adenopathy in the pelvis. IMPRESSION: 1. Bowel wall thickening and hyperemia involving the proximal small bowel. Findings are likely congressional representative of enteritis. No evidence of acute vascular occlusion or internal hernia. No free fluid or free air. 2. Hepatic steatosis. Dictated by: Dictated on workstation # [id number] Dict: 08/06/20 1435 Trans: 08/06/20 1447 [id number] [id number] Interpreted by: COLLIN MENDEZ DO Electronically signed by: COLLIN MENDEZ DO 08/06/20 1447 Reviewed: Reviewed by Mn Departure Impression Primary Impression: Gastroenteritis Disposition: 01 HOME, SELF-CARE Condition: Improved Departure-Patient Inst. Decision time for Depature: 15:04 Referrals: NO,LOCAL PHYSICIAN (PCP/Family) Primary Care Physician Patient Instructions: [id number] Add. Discharge Instructions: 1. Drink plenty of fluids. Use MiraLAX 17 g daily or twice a day as needed for constipation if develops with the use of hydrocodone. 2. Take hydrocodone every 6 hours as needed for severe pain. 3. Use of ciprofloxacin twice a day for 7 days as directed. Buy yogurt with probiotics or take a probiotic daily while taking antibiotics. 4. Establish with a primary care provider of your choice, you have been provided with a list. 5. Return to ER if you have any fevers, bloody stools, increasing pain, or any other new or concerning symptoms. Scripts Hydrocodone/Acetaminophen (Hydrocodone-Acetamin 5-325 mg) 1 Each Tablet 1 TAB PO Q6H PRN for PAIN-MODERATE (5-7), #14 TAB 0 Refills Prov: NONA PAYAN USABILITY ENGINEER 08/06/20 Ciprofloxacin HCl (Ciprofloxacin HCl) 500 Mg Tablet 500 MG PO BID for 7 Days, #14 TAB Prov: NONA PAYAN USABILITY ENGINEER 08/06/20 NONA PAYAN APRN Aug 06, 2020 13:09
[2020-08-06 13:36] LABS: BASOPHILS # (AUTO) 0.1 10^3/uL (0.0-0.1); BASOPHILS % (AUTO) 1 % (0-10); EOSINOPHILS # (AUTO) 0.2 10^3/uL (0.0-0.3); EOSINOPHILS % (AUTO) 2 % (0-10); HEMATOCRIT 41 % (35-52); HEMOGLOBIN 14.1 g/dL (11.5-16.0); LYMPHOCYTES # (AUTO) 2.2 10^3/uL (1.0-4.0); LYMPHOCYTES % (AUTO) 29 % (12-44); MEAN CORPUSCULAR HEMOGLOBIN 32 pg (25-34); MEAN CORPUSCULAR HGB CONC 34 g/dL (32-36); MEAN CORPUSCULAR VOLUME 93 fL (80-99); MEAN PLATELET VOLUME 9.3 fL (9.0-12.2); MONOCYTES # (AUTO) 0.7 10^3/uL (0.0-1.0); MONOCYTES % (AUTO) 9 % (0-12); NEUTROPHILS # (AUTO) 4.6 10^3/uL (1.8-7.8); NEUTROPHILS % (AUTO) 60 % (42-75); PLATELET COUNT 346 10^3/uL (130-400); WHITE BLOOD COUNT 7.7 10^3/uL (4.3-11.0)
[2020-08-06] MEDS ORDERED: ONDANSETRON 4 MG/2 ML (SDV) Z0FRAN IVP ONE (13:45)
[2020-08-06] MEDS ORDERED: fentaNYL INJ 100 MCG/2 ML AMP IVP ONE (13:45)
[2020-08-06 13:49] LABS: ALBUMIN 4.3 GM/DL (3.2-4.5); CHLORIDE 106 MMOL/L (98-107); SODIUM 141 MMOL/L (135-145)
[2020-08-06 13:50] LABS: CALCIUM 9.8 MG/DL (8.5-10.1)
[2020-08-06 13:52] LABS: GLUCOSE 175 MG/DL (70-105); TOTAL PROTEIN 7.6 GM/DL (6.4-8.2)
[2020-08-06 13:53] LABS: BILIRUBIN,TOTAL 0.6 MG/DL (0.1-1.0); CARBON DIOXIDE 23 MMOL/L (21-32)
[2020-08-06 13:55] LABS: ALKALINE PHOSPHATASE 86 U/L (40-136); CREATININE SERUM 1.11 MG/DL (0.60-1.30); GFR ESTIMATED 49
[2020-08-06 13:56] LABS: BUN/CREATININE RATIO 8
[2020-08-06 13:58] LABS: ALANINE AMINOTRANSFERASE 30 U/L (0-55)
[2020-08-06] MEDS ORDERED: CATHETER FLUSH 10 ML SYR IV PRN (14:15)
[2020-08-06] MEDS ORDERED: HOLD METFORMIN - RECEIVED CONTRAST 20 ML VIAL IV SCH (14:15)
[2020-08-06] MEDS ORDERED: IOHEXOL 350 MG/ML 100 ML (OMNIPAQUE 350) VIAL IV ONE (14:15)
[2020-08-06] MEDS ORDERED: NS 100 ML (IVPB) BAG IV ONE (14:15)
--- NOTE | 2020-08-06 14:26 | Diagnostic Imaging Report ---
Indication: Cough Frontal chest obtained at 201 hours p.m. and compared to 05/04/2012. There is poststernotomy change. The heart is borderline in size. There is mild central vascular prominence without ameena edema. There is no consolidation or pneumothorax or pleural fluid. There is some linear scarring or atelectasis in the right midlung IMPRESSION: Central vascular congestion without ameena edema. Mild linear scarring or atelectasis in right midlung. No consolidation or pleural fluid. Dictated by: Dictated on workstation # [id number]
--- NOTE | 2020-08-06 14:44 | Diagnostic Imaging Report ---
EXAMINATION: CT abdomen and pelvis with intravenous contrast. TECHNIQUE: Multiple contiguous axial images were obtained through the abdomen and pelvis after the uneventful administration of intravenous contrast. All CT scans use one or more of the following dose optimizing techniques: automated exposure control, MA and/or KvP adjustment based on patient size and exam type or iterative reconstruction. HISTORY: Right upper quadrant abdominal pain. COMPARISON: None available. FINDINGS: The heart is unremarkable. Calcified granulomas are seen in the lung bases bilaterally. Minimal atelectasis is seen in the lung bases. There is hepatic steatosis. No focal hepatic lesions are seen. The portal vein is patent. The gallbladder is surgically absent. No intra or extrahepatic biliary dilation is seen. The liver, spleen, pancreas, adrenal glands, and kidneys have a normal appearance. There is no pathologically enlarged mesenteric or retroperitoneal adenopathy. Bowel wall thickening and hyperemia is seen involving the proximal small bowel. No evidence of acute vascular occlusion or internal hernia. There is a small amount of mesenteric inflammatory changes in the midabdomen. There is no free fluid or free air. No acute osseous abnormalities. There is calcified aortic and iliac atherosclerotic plaque without evidence of aneurysm. Ureters and bladder are grossly normal. There is no free air, loculated collection, or adenopathy in the pelvis. IMPRESSION: 1. Bowel wall thickening and hyperemia involving the proximal small bowel. Findings are likely players club representative of enteritis. No evidence of acute vascular occlusion or internal hernia. No free fluid or free air. 2. Hepatic steatosis. Dictated by: Dictated on workstation # [id number]
[2020-08-06] MEDS ORDERED: CIPROFLOXACIN 500 MG (CIPRO) TABLET PO ONE (15:00)
[2020-08-06] MEDS ORDERED: HYDROcodone/APAP 5 MG/325 MG (LORTAB) TAB PO ONE (15:00)
[2020-08-06] MEDS ORDERED: CIPR500T5 PO (15:08)
[2020-08-06] MEDS ORDERED: ACHD5005 PO (15:08)
[2020-08-06 15:22] LABS: BILIRUBIN,URINE NEGATIVE (NEGATIVE); CLARITY,URINE CLEAR; COLOR,URINE YELLOW; GLUCOSE, URINE (UA) NEGATIVE (NEGATIVE); KETONES,URINE NEGATIVE (NEGATIVE); LEUKOCYTE ESTERASE ,URINE NEGATIVE (NEGATIVE); NITRITE,URINE NEGATIVE (NEGATIVE); PH,URINE 5.5 (5-9); PROTEIN,URINE NEGATIVE (NEGATIVE)
[2020-08-06 15:25] VITALS: BP 159/74
[2020-08-06 15:43] LABS: BACTERIA,URINE NEGATIVE /HPF; RENAL EPITHELIAL CELLS,URINE RARE /HPF; WBC,URINE RARE /HPF
== END 2020-08-06 15:29 | disposition home or self-care (01) ==
LOC: EDUNIT# 13:04 → ER 13:05
DX: K52.9 Noninfective gastroenteritis and colitis, unspecified (principal); J45.909 Unspecified asthma, uncomplicated; I10 Essential (primary) hypertension; F41.9 Anxiety disorder, unspecified; E11.9 Type 2 diabetes mellitus without complications; Z79.899 Other long term (current) drug therapy
CPT/HCPCS: 36415; 71045; 74177; 80053; 81000; 84484; 85025; 86141; 93005

== ENCOUNTER → 2020-10-30 | Outpatient (CLI) | payer MEDICARE, MEDICAID ==
[~2020-10-30] MED LIST changes: +ACHD5005 PO; +CIPR500T5 PO
== END ==
LOC: CARD 12:48
PROVIDERS: ATTEND Internal Medicine Cardiovascular Disease
DX: I08.0 Rheumatic disorders of both mitral and aortic valves (principal)
CPT/HCPCS: 93306

== ENCOUNTER → 2020-11-04 | Outpatient (CLI) | payer MEDICARE, MEDICAID ==
[~2020-11-04] VITALS: Ht 152 cm; Wt 82.0 kg
[~2020-11-04] MED LIST changes: +CATHETER FLUSH 10 ML SYR IV PRN; +REGADENOSON 0.4 MG/5 ML SYR (LEXISCAN) IV ONE
[2020-11-04 09:24] VITALS: BP 183/84
--- NOTE | 2020-11-04 12:49 | STRESS TEST ---
DATE OF SERVICE: 11/04/2020 RESTING AND POST REGADENOSON TECHNETIUM-99M TETROFOSMIN SPECT CT IMAGING ORDERING PHYSICIAN: Dr. Cabezas. CLINICAL DIAGNOSIS: Coronary artery disease. Baseline images were carried out after injection of 10.44 mCi of technetium-99m Tetrofosmin. This was followed by 0.4 mg Regadenoson and 32.2 mCi of technetium-99m Tetrofosmin for stress imaging. The electrocardiogram showed sinus rhythm with nonspecific ST abnormality in the inferolateral leads. This became more prominent with the regadenoson infusion and then returned towards baseline. The patient did not report symptoms. Review of images at rest and following stress indicates a small transient perfusion defect in the lateral wall. Gated images show normal global left ventricular systolic function with normal regional wall motion. Left ventricular ejection fraction is calculated to be 67%. Left ventricular end diastolic volume is 39 mL. TID is absent (1.1). CONCLUSIONS: 1. This study indicates a small amount of lateral ischemia. 2. Normal regional wall motion. 3. Normal global left ventricular systolic function with a calculated ejection fraction of 67%. Job ID: [id number] DocumentID: [id number] Dictated Date: 11/04/2020 12:05:47 Dial Brusher Date: 11/04/2020 12:48:28 Dictated By: BRIAN CABEZAS MD, MA, FACP, FACC,
== END ==
LOC: CARD 08:30
PROVIDERS: ATTEND Internal Medicine Cardiovascular Disease
DX: I25.10 Atherosclerotic heart disease of native coronary artery without angina pectoris (principal); I25.9 Chronic ischemic heart disease, unspecified
CPT/HCPCS: 78452; 93017; A9502

== ENCOUNTER 2020-11-11 14:00 | Day surgery (SDC) | payer MEDICARE, MEDICAID ==
[~2020-11-11] VITALS: Ht 152 cm; Wt 82.0 kg
[2020-11-11] VITALS (10 sets, daily range): BP systolic 105–148; BP diastolic 52–74
[2020-11-11 12:33] LABS: HEMATOCRIT 45 % (35-52); HEMOGLOBIN 15.1 g/dL (11.5-16.0); MEAN CORPUSCULAR HEMOGLOBIN 32 pg (25-34); MEAN CORPUSCULAR HGB CONC 34 g/dL (32-36); MEAN CORPUSCULAR VOLUME 95 fL (80-99); MEAN PLATELET VOLUME 9.7 fL (9.0-12.2); PLATELET COUNT 360 10^3/uL (130-400); WHITE BLOOD COUNT 7.5 10^3/uL (4.3-11.0)
[2020-11-11 12:36] LABS: ALBUMIN 4.5 GM/DL (3.2-4.5); BILIRUBIN,TOTAL 1.3 MG/DL (0.1-1.0); CREATININE SERUM 1.22 MG/DL (0.60-1.30); TOTAL PROTEIN 7.9 GM/DL (6.4-8.2)
[2020-11-11 12:37] LABS: INR 0.9 (0.8-1.4); PROTHROMBIN TIME PATIENT 12.7 SEC (12.2-14.7)
--- NOTE | 2020-11-11 13:57 | Cardiac Procedure Note-CS/ASA ---
Pre-Procedure Note Pre-Op Procedure Note H&P Reviewed The H&P was reviewed, patient examined and no changes noted. Date H&P Reviewed: Nov 11, 2020 Time H&P Reviewed: 13:30 Conscious Sedation Pre-Proced Time 13:30 ASA Score 3 For ASA 3 and 4: Consider anesthesia and medical clearance. Also, for patients with a history of failed moderate sedation consider anesthesia. Airway Lungs Heart ASA score ASA 1: a normal healthy patient ASA 2: a patient with a mild systemic disease (mid diabetes, controlled hypertension, obesity ASA 3: a patient with a severe systemic disease that limits activity (angina, COPD, prior Myocardial infarction) ASA 4: a patient with an incapacitating disease that is a constant threat to life (CHF, renal failure) ASA 5: a moribund patient not expected to survive 24 hrs. (ruptured aneurysm) ASA 6: a declared brain- patient whose organs are being harvested. For emergent operations, add the letter E after the classification Mallampati Classification Grade 2 Sedation Plan Analgesia, Amnesia, Plan communicated to team members, Discussed options with patient/fam, Discussed risks with patient/fam The patient is an appropriate candidate to undergo the planned procedure, sedation, and anesthesia. The patient immediately re-assessed prior to indication. BRIAN PANCHAL MD FACP FAC CCDS Nov 11, 2020 13:57
[~2020-11-11 14:00] MED LIST changes: +ASPI-1238 PO; -CATHETER FLUSH 10 ML SYR IV PRN; +CHOL200074 PO; +CNC1KV IM; +FLUT9.9S NSEACH; +HEParin (CATH LAB) 2,000 ML IV ONE; +LEVA15HF5 IH; +LIDOCAINE 1% INJ 20 ML 20 ML VIAL ONE; +LISI10TA25 PO; +LORA10TA7 PO; +METO-333 PO; +MULT-1136 PO; +NIAC-44 PO; +NS IV 1000 ML 1,000 ML IV SCH; +NS IV 1000 ML 1,000 ML ONE; +OMEG-35 PO; +PARO20TA5 PO; +PATIENT MAY USE OWN MEDS, ALL PO SCH; -REGADENOSON 0.4 MG/5 ML SYR (LEXISCAN) IV ONE; +TIZA4TAB4 PO
--- NOTE | 2020-11-11 14:01 | Discharge Inst-Cardiology ---
Discharge Inst-Cardiac Discharge Medications Continued Medications: Aspirin (Aspirin EC) 81 Mg Tablet.dr 81 MG PO DAILY, TAB Cholecalciferol (Vitamin D3) (Vitamin D3) 50 Mcg Capsule 50 MCG PO 1200, CAP Cyanocobalamin (Cyanocobalamin Injection) 1,000 Mcg/Ml Inj 1 ML IM MONTHLY, ML Fluticasone Propionate (Flonase Allergy Relief) 9.9 Ml [place].susp 1-2 SPRAY NSEACH HS PRN for CONGESTION, EACH Levalbuterol Tartrate (Levalbuterol Tartrate Hfa) 15 Gm Hfa.aer.ad 2 PUFF IH Q4H PRN for WHEEZING, GM Lisinopril (Lisinopril) 10 Mg Tablet 10 MG PO 1800 W/DINNER, TAB Loratadine (Loratadine) 10 Mg Tablet 10 MG PO DAILY, TAB Metoprolol Tartrate (Metoprolol Tartrate) 25 Mg Tablet 25 MG PO BID, TAB Multivitamin (Multivitamin) 1 Each Tablet 1 EACH PO 1200, TAB Niacin (Niacin) 500 Mg Tablet 500 MG PO 1200, TAB [place]-3/Dha/Epa/Fish Oil (Fish Oil 1,000 mg Softgel) 1 Each Capsule 1 EACH PO 1200, CAP Paroxetine HCl (Paroxetine HCl) 20 Mg Tablet 20 MG PO DAILY, TAB Tizanidine HCl (Tizanidine HCl) 4 Mg Tablet 4 MG PO HS, TAB BRIAN PANCHAL MD FACP [facility] CCDS Nov 11, 2020 14:01
--- NOTE | 2020-11-11 14:02 | Discharge Inst-Post CATH ---
Discharge Inst-CATH/EP Post Cardiac Cath/EP D/C Inst Follow Up/Plan F/u with Dr Cabezas in 2 weeks ACTIVITY * Go Home directly and rest. * Limit activity of the leg (or wrist if it was used) for 7 days including aerobics, swimming, jogging, bicycling, etc. * Restrict stair-climbing for 7 days if possible, if not, climb up with your n on-cath leg, then bring together on the same step. * Avoid lifting, pushing, pulling or excessive movement of the affected ex tremity for 7 days. * Customary sexual activity may be resumed after 2 days-use caution not to use a position that strains or causes pain to the affected extremity. * No driving for 24 hours. * NO SMOKING. * Avoid straining for bowel movements for 7 days. * Gentle walking on level ground is allowed. * Returning to work will depend on the type of procedure and the results. Your doctor will discuss this with you. CALL YOUR DOCTOR FOR ANY OF THE FOLLOWING: *If bleeding from the puncture site occurs- Apply gentle pressure to site with clean cloth and call your doctor or EMS. * If a knot or lump forms under the skin, increases in size, or causes pain. * If bruising appears to be worsening or moving further down your leg instead of disappearing. * Temperature above 101 F. CARE OF YOUR GROIN INCISION; * Bruising or purple discoloration of the skin near the puncture site is common. * You may shower only, no bathtub bathing for 5 days. Be careful to avoid slipping as your leg may feel stiff. * If a closure device was used on your femoral artery, please see the attached guide regarding care of the device and your leg. * Leave dressing on FOR 24 hours. CARE OF YOUR WRIST INCISION; * Bruising or purple discoloration of the skin near the puncture site is common. * You may shower. * DO NOT submerge wrist. * Leave dressing on FOR 24 hours. BRIAN CABEZAS MD FACP FAC CCDS Nov 11, 2020 14:02
--- NOTE | 2020-11-11 17:18 | CARDIAC CATHETERIZATION ---
DATE OF SERVICE: 11/11/2020 CARDIAC CATHETERIZATION REPORT INDICATION FOR PROCEDURE: The patient is a 64-year-old lady with known coronary artery disease, who recently had a myocardial perfusion imaging study, which indicated lateral ischemia. Cardiac catheterization was carried out after having obtained an informed consent. DESCRIPTION OF PROCEDURE: She was brought to the cardiac catheterization laboratory in a fasting state. Right groin was prepared and draped in the usual sterile fashion. Lidocaine 1% was used for local anesthesia. Modified Seldinger technique was used to advance a 5-Cambodian sheath in the right femoral artery, 5-Cambodian JL4 catheter was used for left coronary angiography, 5-Cambodian JR4 catheter was used for right coronary angiography and for angiography of the aortocoronary grafts. A 5-Cambodian MARK catheter was used for angiography of the left internal mammary artery graft to left anterior descending artery. A 5-Cambodian pigtail catheter was used for left heart catheterization and left ventricular angiography. A 5-Cambodian pigtail catheter was pulled back to the aortic arch and aortic arch angiography was performed. The aortic arch angiography was performed to make sure that there was no subclavian arterial dissection, upon selective engagement of the left internal mammary artery graft earlier, angiography had shown mid vessel occlusion and the dye was streaking back into the left subclavian artery and has raised the question of a possible dissection of the intima of the left subclavian. Upon angiography of the aortic arch; however, no significant dissection or obstruction was seen in the left subclavian. Angiography of the right femoral artery was carried out through the sheath and Mynx was used to achieve hemostasis following sheath removal. She tolerated the procedure well. HEMODYNAMICS: Left ventricular end-diastolic pressure following coronary angiography was 16 mmHg. There was no significant pressure gradient on pullback across the aortic valve. Ascending aortic pressure was 144/69 with a mean of 102 mmHg. CORONARY ANGIOGRAPHY: Left main coronary artery is free of significant disease. Left anterior descending artery has widely patent stent in its mid portion. These are known to be Vision 3.0 x 15 and mini Vision 2.5 x 15 mm stents that were placed several years ago. The left circumflex artery has approximately 50% ostial stenosis. The first obtuse marginal branch of the left circumflex artery is occluded at its ostium. The terminal posterolateral branches of the left circumflex artery have severe proximal and mid vessel disease, but they are not amenable to intervention on account of very small caliber size. The right coronary artery is small in caliber. It had severe proximal disease, but is of too small a caliber for consideration for intervention. AORTOCORONARY GRAFT: Two aortocoronary grafts, presumably to the left circumflex, right coronary arteries are occluded at the ostia. LEFT INTERNAL MAMMARY ARTERY GRAFT ANGIOGRAPHY: Left internal mammary artery graft is occluded in its proximal to mid portion. LEFT VENTRICULAR ANGIOGRAPHY: Left ventricular angiography indicates normal global left ventricular systolic function with an ejection fraction approximately 60%. AORTIC ARCH ANGIOGRAPHY: Aortic arch angiography did not indicate any ascending aortic aneurysm or dissection. The neck arteries are identified. There is a mild to moderate calcification and plaque in the proximal portion of the neck arteries. No significant dissection or severe stenoses are seen. CONCLUSIONS: 1. Coronary artery disease consisting primarily of occlusion of the first obtuse marginal branch of the left circumflex and severe disease in the distal small caliber obtuse marginal branch of the left circumflex. The left anterior descending artery is patent and has patent stents in its mid portion that are known to be Vision 3.0 x 15 mm and mini Vision 2.5 x 15 mm stents that were placed several years ago. Right coronary artery is small in caliber, nondominant and has severe proximal disease, but is not suited to intervention on account of small caliber. 2. All coronary grafts (two aortocoronary grafts and a left internal mammary artery graft) are occluded. 3. Well preserved global left ventricular systolic function with an ejection fraction approximately 60%. 4. Mild elevation of left ventricular end-diastolic pressure. DISCUSSION AND RECOMMENDATIONS: Based on results of the study, it appears appropriate to continue a conservative approach. Risk factor modification has been reviewed. Outpatient followup is advised. Job ID: [id number] DocumentID: [id number] Dictated Date: 11/11/2020 14:12:23 Camera Assembler Date: 11/11/2020 17:17:36 Dictated By: BRIAN PANCHAL MD, MA, FACP, FACC, MTDD
== END 2020-11-11 18:07 | disposition home or self-care (01) ==
LOC: CATH 14:00 → CSD 14:29 → CATH 18:07
PROVIDERS: ATTEND Internal Medicine Cardiovascular Disease
DX: I25.10 Atherosclerotic heart disease of native coronary artery without angina pectoris (principal); I65.29 Occlusion and stenosis of unspecified carotid artery; I12.9 Hypertensive chronic kidney disease with stage 1 through stage 4 chronic kidney disease, or unspecified chronic kidney disease; I34.0 Nonrheumatic mitral (valve) insufficiency; N18.30 Chronic kidney disease, stage 3 unspecified; E66.9 Obesity, unspecified; G89.29 Other chronic pain; M54.5 Low back pain; M54.32 Sciatica, left side; M54.31 Sciatica, right side; K21.9 Gastro-esophageal reflux disease without esophagitis; K27.9 Peptic ulcer, site unspecified, unspecified as acute or chronic, without hemorrhage or perforation; E78.5 Hyperlipidemia, unspecified; E78.2 Mixed hyperlipidemia; Z79.82 Long term (current) use of aspirin; Z79.899 Other long term (current) drug therapy; Z79.891 Long term (current) use of opiate analgesic; Z90.49 Acquired absence of other specified parts of digestive tract; Z90.89 Acquired absence of other organs; Z90.722 Acquired absence of ovaries, bilateral; Z90.710 Acquired absence of both cervix and uterus; Z68.35 Body mass index [BMI] 35.0-35.9, adult
CPT/HCPCS: 36221; 80053; 80061; 85027; 85610; 85730; 87081; 93459; C1760; C1894; 36415

== ENCOUNTER → 2021-06-02 | Outpatient (CLI) | payer MEDICARE, MEDICAID ==
[~2021-06-02] MED LIST changes: -HEParin (CATH LAB) 2,000 ML IV ONE; -LIDOCAINE 1% INJ 20 ML 20 ML VIAL ONE; -NS IV 1000 ML 1,000 ML IV SCH; -NS IV 1000 ML 1,000 ML ONE; -PATIENT MAY USE OWN MEDS, ALL PO SCH; +TIZA-186 PO; -TIZA4TAB4 PO
--- NOTE | 2021-06-02 13:10 | Diagnostic Imaging Report ---
Indication: Routine screening. Comparison is made with prior mammogram 02/03/2018 and 01/04/2013. 2-D and 3-D bilateral screening mammography was performed with CAD. CAD is utilized. The current study was also evaluated with a Computer Aided Detection (CAD) system. Scattered fibroglandular densities are identified bilaterally. The parenchymal pattern is stable. No mass or malignant-appearing microcalcifications are seen. Axillae are unremarkable. IMPRESSION: BI-RADS Category 1 No mammographic features suspicious for malignancy are identified. ACR BI-RADS Category 1: Negative. Result letter will be mailed to the patient. Note: At least 10% of breast cancer is not imaged by mammography. Dictated by: Dictated on workstation # [id number]
== END ==
LOC: RAD 11:15
PROVIDERS: ATTEND Pediatrics
DX: Z12.31 Encounter for screening mammogram for malignant neoplasm of breast (principal)
CPT/HCPCS: 77063; 77067

== ENCOUNTER → 2022-07-12 | Outpatient (CLI) | payer MEDICARE, MEDICAID ==
--- NOTE | 2022-07-12 12:49 | Diagnostic Imaging Report ---
INDICATION: Routine screening. Comparison is made with prior mammogram from 06/02/2021 and 02/03/2018. 2-D and 3-D bilateral screening mammography was performed with CAD. CAD is utilized. The current study was also evaluated with a Computer Aided Detection (CAD) system. Scattered fibroglandular densities are identified bilaterally. The parenchymal pattern is stable. No mass or malignant-appearing microcalcifications are seen. Axillae are unremarkable. IMPRESSION: BI-RADS Category 1 No mammographic features suspicious for malignancy are identified. ACR BI-RADS Category 1: Negative. Result letter will be mailed to the patient. Note: At least 10% of breast cancer is not imaged by mammography. Dictated by: Dictated on workstation # [id number]
== END ==
LOC: RAD 10:27
PROVIDERS: ATTEND Pediatrics
DX: Z12.31 Encounter for screening mammogram for malignant neoplasm of breast (principal)
CPT/HCPCS: 77063; 77067

== ENCOUNTER 2022-11-29 07:17 | Day surgery (SDC) | payer MEDICARE, MEDICAID ==
[~2022-11-29] VITALS: Ht 152.4 cm; Wt 68.5 kg
[~2022-11-29 07:17] MED LIST changes: +BENZ100C18 PO; +DULA0.75 SQ; +EVOL140P3 SQ; -EZET10TA17 PO; +EZET10TA83 PO; +LACTATED RINGERS 1,000 ML 1,000 ML IV STA
[2022-11-29] MEDS ORDERED: HURRICAINE EXT TUBE (BENZOCAINE) XX PRN (07:30)
[2022-11-29 08:00] VITALS: BP 130/69
--- NOTE | 2022-11-29 08:40 | Progress Note-Pre Operative ---
Pre-Operative Progress Note Date of Available H&P: Nov 04, 2022 Date H&P Reviewed: Nov 29, 2022 Time H&P Reviewed: 08:33 History & Physical: H&P Reviewed, Patient Examed, No changes noted Pre-Operative Diagnosis: Hx of Gastric Ulcer, +SOFIYA Patel DO Nov 29, 2022 08:40
[2022-11-29 09:20] VITALS: BP 95/50
[2022-11-29 09:25] VITALS: BP 96/56
--- NOTE | 2022-11-29 09:26 | Progress Note-Post Operative ---
Post-Operative Progess Note Surgeon (s)/Hotel Recreational Facilities Manager (s) Surgeon SOFIYA TRENT DO Hotel Recreational Facilities Manager: Doron Collins, MSIII Pre-Operative Diagnosis Hx of Gastric Ulcer, +cologuard Post-Operative Diagnosis Gastritis with bleed Hiatal Hernia Colon Polyp int hemorrhoids Procedure & Operative Findings Date of Procedure 11/29/22 Procedure Performed/Findings EGD with biopsy Colonoscopy with hot biopsy PROCEDURE NOTE: After informed consent was obtained, the patient was brought to the endoscopy suite, placed in bed in left lateral decubitus position. She was administered IV sedation by the RAILROAD DISPATCHER who then monitored vitals the entire time, heart rate, blood pressure and pulse ox and the scope was inserted down the mouth through the esophagus into the stomach. On the way down, noted some mild esophagitis, took a picture, pushed into the stomach and noted some blood on the gastric wall; looked like gastritis with bleeding. I pushed past the antrum into the duodenum; duodenum looked good. Pulled back and did a biopsy of the antrum, then retroflexed the scope, saw small grade II AFS hiatal hernia, took a picture of this and then pulled the scope into the GE junction, took another picture of the hiatal hernia and then did a biopsy of the GE junction. Pushed the scope back into the stomach, suctioned all the air out of the stomach. At this point pulled the scope up the esophagus and out the mouth. Switched camera, switched gloves, went down below and started the colonoscopy. Pushed all the way to about 140 cm and pushed into the cecum, took a picture of appendiceal orifice and noted the ileocecal valve. Then slowly withdrew the scope insufflating to look circumferentially at the gupta starting in the cecum and up the ascending colon. I found a polyp here and elected to do a hot biopsy of the polyp. Continued to the hepatic flexure, then down the transverse colon to the splenic flexure, into the descending colon down in the sigmoid and then into the rectal vault and retroflexed the scope. Took a picture of the internal hemorrhoids. The patient tolerated the procedure and she recovered in the endoscopy suite. Recommended for repeat colonoscopy in 10 years Anesthesia Type IV sedation by RAILROAD DISPATCHER Estimated Blood Loss Estimated blood loss (mL): scant Specimens/Packing Specimens Removed antral bx body of stomach bx GE jxn bx Asc colon polyp SOFIYA TRENT DO Nov 29, 2022 09:26
--- NOTE | 2022-11-29 09:27 | Endoscopy Discharge Instruct ---
Endo Procedure/Findings Findings 1.: Gastritis 2.: Hiatal Hernia 3.: Polyp 4.: Internal Hemorrhoids Discharge Instructions - Activity: You might feel a little sleepy until tomorrow. This is due to the medicine you received to relax you. Until tomorrow, you should: NOT drive a car, operate machinery or power tools. NOT drink any alcoholic beverages. NOT make any important decisions or sign importortant papers. Do not return to work until tomorrow, unless otherwise instructed. Resume previous activities tomorrow. Diet: Start by taking liquids. If you tolerate liquids, advance to solid food. 1.: EGD in 3 years 2.: Colonscopy in 5 years Notify Physician - If you experience excessive bleeding, unusual abdominal pain, fever, or chest pain, contact your doctor immediately. Follow-Up: Other Follow up in my office in one week SOFIYA TRENT DO Nov 29, 2022 09:27
[2022-11-29 09:35] VITALS: BP 97/55
[2022-11-29 09:50] VITALS: BP 97/55
--- NOTE | 2022-11-29 11:30 | Anesthesia-General Post-Op ---
MAC Patient Condition Mental Status/LOC: Same as Preop Cardiovascular: Satisfactory Nausea/Vomiting: Absent Respiratory: Satisfactory Pain: Controlled Complications: Absent Post Op Complications Complications None Follow Up Care/Instructions Patient Instructions None needed. Anesthesiology Discharge Order Discharge Order Patient is doing well, no complaints, stable vital signs, no apparent adverse anesthesia problems. No complications reported per nursing. PEREZ PURVSI CRNA Nov 29, 2022 11:30
== END 2022-11-29 10:38 | disposition home or self-care (01) ==
LOC: ENDO 07:17
PROVIDERS: ATTEND Surgery
DX: K29.71 Gastritis, unspecified, with bleeding (principal); K44.9 Diaphragmatic hernia without obstruction or gangrene; D12.2 Benign neoplasm of ascending colon; K21.00 Gastro-esophageal reflux disease with esophagitis, without bleeding; K64.8 Other hemorrhoids; E11.9 Type 2 diabetes mellitus without complications; E66.9 Obesity, unspecified; Z68.29 Body mass index [BMI] 29.0-29.9, adult; Z95.5 Presence of coronary angioplasty implant and graft; Z87.11 Personal history of peptic ulcer disease; Z95.1 Presence of aortocoronary bypass graft; Z79.85 Long-term (current) use of injectable non-insulin antidiabetic drugs